=== PATIENT | male | born 1990 | race Caucasian/White ===

== ENCOUNTER 2016-06-18 00:48 | Day surgery (SDC) | payer OTHER ==
[~2016-06-18 00:48] MED LIST: ACET325T51 PO; BUSP5TAB3 PO; INDO25CA PO; RANI150C4 PO; VENL75CA95 PO
[2016-06-18] MEDS ORDERED: Lactated Ringer's 1,000 ML IV SCH (05:00)
== END 2016-06-18 23:59 | disposition home or self-care (01) ==
LOC: END 00:48
PROVIDERS: ATTEND Surgery
DX: K57.20 Diverticulitis of large intestine with perforation and abscess without bleeding (principal); Z53.9 Procedure and treatment not carried out, unspecified reason